=== PATIENT | female | born 1945 | race Caucasian/White ===

== ENCOUNTER 2022-02-15 08:28 | Day surgery (SDC) | payer MEDICARE, OTHER ==
--- NOTE | 2022-02-15 07:45 | HP ---
DATE OF SURGERY: 02/15/2022 HISTORY OF PRESENT ILLNESS: The patient is a 76-year-old with history of polyps in the past. No bloody stools. No change in bowel movements. No pain. Family history negative for colon cancer. Family history of polyps. She is in need of follow up screening colonoscopy. PAST MEDICAL HISTORY: Hypothyroidism, some kidney problems and some arthritis. PAST SURGICAL HISTORY: Includes knee replacement, back surgery and cataract in the past. She had colonoscopy in the past. MEDICATIONS: Synthroid, multivitamin, aspirin. Vicodin PRN for arthritis. ALLERGIES: NKDA. FAMILY HISTORY: Cancer but negative for colon cancer. SOCIAL HISTORY: Denies smoking. REVIEW OF SYSTEMS: Fourteen systems reviewed. No chest pain or palpitations. Other systems negative or noncontributory as above and per preadmission questionnaire. PHYSICAL EXAMINATION: GENERAL: No acute distress. HEENT: Sclerae nonicteric. NECK: No JVD. CHEST: Equal excursion, nonlabored breathing. CVS: Regular rate and rhythm. ABDOMEN: Soft. No peritoneal signs. EXTREMITIES: No significant edema. NEURO: Alert, oriented, moving extremities symmetrically. RECTAL: Deferred timed to endoscopy exam. PSYCH: Appropriate mood and affect. IMPRESSION: History of polyps, need for follow up screening colonoscopy. I feel the patient is a candidate. She was shown the risk sheet, explained the procedure in detail including but not limited to bleeding or infection, risk of bowel injury or perforation possibly requiring further procedure, risk of missed or nondiagnosis or incomplete exam, possibly requiring barium enema, other studies or procedures, general risk of anesthesia or sedation, risk of bowel prep but not limited to, consent obtained. Will proceed with outpatient follow up screening colonoscopy under MAC anesthesia.
[2022-02-15] MEDS: Lactated Ringers 1,000 ML IV SCH (08:40)
[2022-02-15] MEDS ORDERED: Xylocaine-Mpf 2% 5 Ml Vial ONE (10:24)
[2022-02-15] MEDS ORDERED: DIPRIVAN 200 MG/20 ML IV ONE (10:24)
[2022-02-15 11:56] VITALS: BP 159/78; PULSE 62; O2SAT 97
--- NOTE | 2022-02-15 14:01 | OP ---
SURGERY DATE/TIME: 02/15/2022 1032 PREOPERATIVE DIAGNOSIS: History of polyps, need follow up screening colonoscopy. POSTOPERATIVE DIAGNOSES: 1) ASA Class II. 2) Fair but slightly limited bowel prep. 3) Diverticulosis. 4) Small early polyps versus hyperplastic lesions. 5) Withdrawal time approximately nine minutes. PROCEDURES: 1) Colonoscopy to cecum with hot biopsy polypectomy. 2) Small early polyp versus hyperplastic lesion transverse colon x1, rectum x2. SURGEON: Dr. Dre Valadez. ANESTHESIA: MAC. ESTIMATED BLOOD LOSS: Minimal. INDICATIONS: As noted above. Risks and benefits explained in detail but not limited to and consent obtained. DESCRIPTION OF PROCEDURE AND FINDINGS: The patient is taken to the endoscopy room. MAC anesthesia induced. After official time out and no disagreement with planned procedure, digital rectal exam did not reveal any rectal masses. Video colonoscope inserted and passed up through the tortuous sigmoid, descending, transverse and ascending colon. With the external pressure the scope was able to be passed around to the cecum. Appendiceal orifice and ileocecal valve well visualized in right lower quadrant on palpation. Prep overall is fair but a little bit on the limited side with liquidy semisolid stool just slightly limiting the exam for very small lesions. The scope is slowly and carefully withdrew. ASA Class II. The scope is slowly and carefully withdrawn over the next nine minutes. Small early polyp versus hyperplastic lesion in the transverse colon removed with hot biopsy polypectomy. Good hemostasis noted. She had a few small diverticula in the left colon. Scope pulled back to the rectum. A few small early polyps versus hyperplastic lesion removed with hot biopsy forceps with brief bursts of cautery. Good hemostasis noted. The patient tolerated the procedure well. There was no family out in the waiting area to discuss the findings with.
== END 2022-02-15 12:00 | disposition home or self-care (01) ==
LOC: SDC 08:28
PROVIDERS: ATTEND Surgery
DX: Z09 Encounter for follow-up examination after completed treatment for conditions other than malignant neoplasm (principal); Z86.010 Personal history of colon polyps; K57.30 Diverticulosis of large intestine without perforation or abscess without bleeding; K63.5 Polyp of colon; K62.1 Rectal polyp; Z80.8 Family history of malignant neoplasm of other organs or systems
CPT/HCPCS: 99100; J2704

== ENCOUNTER 2023-01-24 09:29 | Day surgery (SDC) | payer MEDICARE, OTHER ==
--- NOTE | 2023-01-24 08:46 | HP ---
DATE OF SURGERY: 01/24/2023 HISTORY OF PRESENT ILLNESS: The patient is a 77-year-old female with problems of food getting stuck upper esophagus worse recently and sometimes has to make herself throw up. Last endoscopy years ago. Family history negative for esophageal cancer or esophageal problems. PAST MEDICAL HISTORY: Hypothyroidism. Arthritis. Pneumonia in the past. PAST SURGICAL HISTORY: Knee arthroscopy. Back surgery. Tubal ligation. EGD. Colonoscopy. MEDICATIONS: Hydrocodone/acetaminophen, multivitamin, Synthroid, aspirin. ALLERGIES: NKDA. FAMILY HISTORY: Breast cancer. Diabetes. Heart disease. Pacemaker. Bone cancer. SOCIAL HISTORY: No smoking. No alcohol abuse. REVIEW OF SYSTEMS: Fourteen systems reviewed. No chest pain or palpitations. Other systems negative or noncontributory as above and per preadmission questionnaire. PHYSICAL EXAMINATION: Height 5'7". BMI 27.41. GENERAL: No acute distress. HEENT: Sclerae nonicteric. EOMI. Oral mucous membranes moist. NECK: No JVD. CHEST: Equal excursion, nonlabored breathing. CVS: Regular rate and rhythm. ABDOMEN: Soft. No peritoneal signs. EXTREMITIES: No significant edema. NEURO: Alert, oriented, moving extremities symmetrically. PSYCH: Appropriate mood and affect. SKIN: Dry. IMPRESSION: Dysphagia. I recommend EGD possible biopsy, possible dilatation. Risk of bleeding or infection, risk of bowel injury or perforation possibly requiring further procedure or transfer for stent placement, possibly no improvement in swallowing possibly requiring other procedures, dilation or referral. Risk of possible no narrowing to dilate or possible neurological or functional where dilatation would not benefit. If dilatation performed and improves swallowing might need repeated again down the road. She agrees to the planned procedure. Continue medication for arthritis and hypothyroidism. Will proceed with EGD possible biopsy possible dilatation as an outpatient.
[2023-01-24] MEDS ORDERED: Lactated Ringers 1,000 ML IV ONE (09:58)
[2023-01-24] MEDS ORDERED: DIPRIVAN 200 MG/20 ML IV ONE (12:05)
[2023-01-24] MEDS ORDERED: Zofran 4 MG/2 ML VIAL ONE ×2 (12:38→13:21)
[2023-01-24 13:27] VITALS: BP 133/64; PULSE 78; O2SAT 96
--- NOTE | 2023-01-24 13:41 | OP ---
SURGERY DATE/TIME: 01/24/2023 1208 PREOPERATIVE DIAGNOSIS: Dysphagia. POSTOPERATIVE DIAGNOSES: 1) Mild erosive gastritis. 2) Question of small hiatal hernia. 3) Barnard pink mucosa extending up distal esophagus. 4) Mid esophagus narrowing with some mild inflammation. 5) Proximal esophageal narrowing. PROCEDURES: 1) EGD with cold biopsy of antrum. 2) Cold biopsy of some salmon pink mucosa distal esophagus as well as that of mid esophagus inflammation and narrowing. 3) Esophageal balloon dilatation of esophageal narrowing size 20 balloon. 4) Proximal esophageal balloon dilatation (size 20 balloon) both in the mid esophagus and proximal esophagus two separate areas. SURGEON: Dr. Dre Valadez. ANESTHESIA: MAC. ESTIMATED BLOOD LOSS: Minimal. INDICATIONS: As noted above. Risks and benefits explained in detail and not limited to and consent was obtained. DESCRIPTION OF PROCEDURE AND FINDINGS: The patient is taken to the endoscopy room. MAC anesthesia introduced. After official time out and no disagreement with planned procedure, bite block positioned. Video gastroscope easily advanced down the oropharynx to the proximal esophagus. She had some narrowing there. There was no mass there. It was felt as she was having symptoms there warranted dilatation to the area. The scope passed down through mid-part of the esophagus about 20 cm where there was a little bit of a narrowing that would benefit from dilatation. Distal to that there is some salmon pink mucosa distal part of the esophagus. The scope passed through to the patent pylorus to the third portion of the duodenum. Third, second, first portion of the duodenum grossly unremarkable. Scope pulled back in the stomach. She had some mild erosive gastritis. Cold biopsy taken to evaluate for Helicobacter pylori. On retroflex, she might have had a slight hiatal weakness it is difficult to tell endoscopically. There are no signs of any ulcers or masses. The scope pulled back. What seemed to be the distal esophagus was at about 33 - 34 cm. There was some salmon pink mucosa extending up over the mid esophagus. Multiple cold biopsies taken as there was no visible mass. Cold biopsies were taken in the inflammation just above the mid esophagus as well. No signs of any obvious masses. At this point good hemostasis noted. Scope passed down back in the stomach. Balloon catheter carefully inserted, pulled back up in the esophageal narrowing and gradually inflated. First stage for 20 or 30 seconds size 18 to 19 and then size 19 to 20 second stage 30 seconds, final stage size 20 balloon dilator for 1 minutes. Balloon was then decompressed a little bit and pulled up into the proximal esophageal narrowing area where repeated the first stage for 30 seconds, second stage size 19 for 30 seconds and final stage for 1 minutes to 2 minutes size 20 balloon dilator. The balloon was decompressed and withdrawn. The scope much more easily passed through this area down the stomach and carefully pulled back. There was mild mucosa disruption, minimal ooze. There did not appear to be any evidence of full thickness issue or injury on either dilatation site. The scope is withdrawn. Findings discussed with the family out in the waiting area.
== END 2023-01-24 13:33 | disposition home or self-care (01) ==
LOC: SDC 09:29
PROVIDERS: ATTEND Surgery
DX: K29.70 Gastritis, unspecified, without bleeding (principal); R13.10 Dysphagia, unspecified; K44.9 Diaphragmatic hernia without obstruction or gangrene; K22.2 Esophageal obstruction
CPT/HCPCS: 99100; C1726; J2405; J2704

== ENCOUNTER 2024-01-05 14:30 | Emergency (ER) | payer MEDICARE, OTHER ==
[2024-01-05 14:54] VITALS: TEMP 98.4
--- NOTE | 2024-01-05 15:36 | XRAY ---
Indication: Bradycardia. Comparison: None Portable chest inflated and clear. Heart not enlarged. Query small hiatal hernia. Bony thorax intact with osteopenia and mild degenerative changes. Impression: Nonacute chest. Query small hiatal hernia.
[2024-01-05 15:43] LABS: BASOPHIL % 0.5 % (0.1-1.2); Basophil (Absolute #) 0.04 x10^3/uL (0.01-0.08); Eosinophil (Absolute #) 0.15 x10^3/uL (0.04-0.36); Hematocrit 35.7 % (34.1-44.9); Hemoglobin 12.1 g/dL (11.2-15.7); IMMATURE GRAN # 0.07 x10^3u/L (0.001-0.031); IMMATURE GRAN % 0.9 % (0.001-0.429); Lymphocyte (Absolute #) 1.33 x10^3/uL (1.18-3.74); Lymphocytes % 17.9 % (19.3-51.7); Mean Cell Volume 87.1 fL (79.4-94.8); Mean Corpuscular Hemoglobin 29.5 pg (25.6-32.2); Mean Corpuscular Hgb Concent. 33.9 g/dL (32.2-35.5); Monocyte (Absolute #) 0.66 x10^3/uL (0.24-0.86); Monocytes % 8.9 % (4.7-12.5); Neutrophil % 69.8 % (34.0-71.1); Platelet Count 213 x10^3/uL (182-369); Red Cell Distribution Width 13.8 % (11.7-14.4); White Blood Count 7.5 x10^3/uL (3.98-10.04)
--- NOTE | 2024-01-05 15:54 | ERPHSYRPT ---
- History of Present Illness Time Seen by Provider: 01/05/24 14:53 Source: patient Exam Limitations: no limitations Patient Subjective Stated Complaint: pt was in physical therapy and they told her that her pulse was 37 Triage Nursing Assessment: Pt brought self to therapy and then was brought to the ER in a wheelchair, hypertensive, denies pain, pulse rate 68-72, pt was a little bit tired today but thought it was due to working outside, skin n/w/d, doesn't appear to be in any distress Physician History: 78-year-old female with history of hypothyroidism, GERD, arthritis who is getting therapy for knee replacement is sent in here after it was found patient was bradycardic. Patient was asymptomatic. She denies any chest pain palpitations or shortness of breath during the whole time she was bradycardic. Per therapy staff patient heart rate was in 30s. Patient heart rate is in 60s on presentation in the ER. Blood pressure in 160s. She is currently asymptomatic. Allergies/Adverse Reactions: No Known Drug Allergies Allergy (Verified 01/05/24 14:54) Home Medications: Hydrocodone/Acetaminophen [Hydrocodone-Acetamin 5-325 mg] 1 tab PO Q6H PRN P RN 02/11/22 [History] Levothyroxine Sodium 150 Mcg [Synthroid 150 Mcg] 150 mcg PO DAILY 02/11/22 [History] Multivitamin [Multi-Vitamin Daily] 1 tab PO DAILY 02/11/22 [History] Omeprazole 40 mg PO DAILY 01/05/24 [History] Hx Influenza Vaccination/Date Given: Yes Hx Pneumococcal Vaccination/Date Given: Yes Travel Risk - International Travel Have you traveled outside of the country in past 3 weeks: No - Emerging Infectious Disease Are you exhibiting symptoms associated with any current EIDs: No - Review of Systems Constitutional: No Symptoms Ears, Nose, & Throat: No Symptoms Respiratory: No Symptoms Cardiac: No Symptoms Abdominal/Gastrointestinal: No Symptoms Genitourinary Symptoms: No Symptoms Musculoskeletal: No Symptoms Skin: No Symptoms Neurological: No Symptoms Endocrine: No Symptoms Hematologic/Lymphatic: No Symptoms - Past Medical History Pertinent Past Medical History: Yes Neurological History: No Pertinent History ENT History: No Pertinent History Cardiac History: No Pertinent History Respiratory History: No Pertinent History Endocrine Medical History: Hypothyroidism, Other Musculoskeletal History: Osteoarthritis GI Medical History: No Pertinent History History: No Pertinent History Psycho-Social History: No Pertinent History Female Reproductive Disorders: No Pertinent History Other Medical History: REPORTS OA IN KNEES AND BACK. HX OF RIGHT TKR 2020. GERD, ESOPHAGEAL STRICTURE - HAD STRETCHING. - Past Surgical History Past Surgical History: Yes Neuro Surgical History: No Pertinent History Cardiac: No Pertinent History Respiratory: No Pertinent History Gastrointestinal: No Pertinent History Genitourinary: No Pertinent History Musculoskeletal: Orthopedic Surgery Female Surgical History: No Pertinent History Other Surgical History: back surgery, knee right replacement - Social History Smoking Status: Never smoker Exposure to second hand smoke: No Drug Use: none - Social Determinants of Health Will the patient participate in the screening: Yes Do you worry about a steady place to live?: No Do you have any problems with any of the following?: No known problems In the past 12 months,have you had to go without utilities?: No Transportation Issues: No Has anyone in your support network made you feel unsafe?: No Have you or anyone in your house had to go without enough: No - Nursing Vital Signs Nursing Vital Signs: Initial Vital Signs Temperature 98.4 F 01/05/24 14:44 Pulse Rate 78 01/05/24 14:44 Respiratory Rate 18 01/05/24 14:44 Blood Pressure 167/69 01/05/24 14:44 O2 Sat by Pulse Oximetry 97 01/05/24 14:44 Pain Scale Pain Intensity 0 - Physical Exam General Appearance: no apparent distress, alert Eye Exam: PERRL/EOMI Ears, Nose, Throat Exam: normal ENT inspection, TMs normal, pharynx normal, moist mucous membranes Neck Exam: normal inspection, non-tender, supple, full range of motion Respiratory Exam: normal breath sounds, lungs clear Cardiovascular Exam: regular rate/rhythm, normal heart sounds Gastrointestinal/Abdomen Exam: soft, No tenderness Back Exam: normal inspection Extremity Exam: normal inspection, normal range of motion Neurologic Exam: alert, oriented x 3, cooperative Skin Exam: normal color SpO2 Interpretation: normal SpO2: 97 O2 Delivery: Room Air - Course EKG Interpreted by Me: RATE (69), Sinus Rhythm, NORMAL AXIS, NORMAL INTERVALS, NORMAL QRS Ordered Tests: Active Orders 24 hr Category Date Time Status Sales Superintendent STAT Care 01/05/24 15:04 Active EKG-ER Only STAT Care 01/05/24 15:04 Active IV Insertion STAT Care 01/05/24 15:04 Active CHEST 1 VIEW (PORTABLE) Stat Exams 01/05/24 15:04 Completed CBC W DIFF Stat Lab 01/05/24 15:15 Completed CK-Creatinine Phosphokinase Stat Lab 01/05/24 15:15 Completed CMP Stat Lab 01/05/24 15:15 Completed NT PRO BNPII Stat Lab 01/05/24 15:15 Completed TROPONIN Q4H Lab 01/05/24 15:15 Completed TROPONIN Q4H Lab 01/05/24 19:15 Ordered TROPONIN Q4H Lab 01/05/24 23:15 Ordered TSH [TSH, 3RD Generation] Stat Lab 01/05/24 15:21 Completed Lab/Rad Data: Laboratory Result Diagrams 01/05/24 15:15 01/05/24 15:15 Laboratory Results 01/05/24 01/05/24 01/05/24 Range/Units 15:21 15:15 15:15 WBC (3.98-10.04) x10^3/uL RBC (3.93-5.22) x10^6/uL Hgb (11.2-15.7) g/dL Hct (34.1-44.9) % MCV (79.4-94.8) fL MCH (25.6-32.2) pg MCHC (32.2-35.5) g/dL RDW (11.7-14.4) % Plt Count (182-369) x10^3/uL MPV (9.4-12.3) fL Gran % (34.0-71.1) % Immature Gran % (Auto) (0.001-0.429) % Nucleat RBC Rel Count (0.00-0.2) % Eos # (Auto) (0.04-0.36) x10^3/uL Immature Gran # (Auto) (0.001-0.031) x10^3u/L Absolute Lymphs (auto) (1.18-3.74) x10^3/uL Absolute Monos (auto) (0.24-0.86) x10^3/uL Absolute Nucleated RBC (0.00-0.012) x10^3u/L Lymphocytes % (19.3-51.7) % Monocytes % (4.7-12.5) % Eosinophils % (0.7-5.8) % Basophils % (0.1-1.2) % Absolute Granulocytes (1.56-6.13) x10^3/uL Basophils # (0.01-0.08) x10^3/uL Sodium 140 (135-145) mmol/L Potassium 4.0 (3.5-5.1) mmol/L Chloride 110 H (98-107) mmol/L Carbon Dioxide 21 L (22-30) mmol/L Anion Gap 13.4 (5-15) MEQ/L BUN 25 H (7-17) mg/dL Creatinine 1.25 H (0.52-1.04) mg/dL Estimated GFR 43.6 ML/MIN Glucose 92 (74-106) mg/dL Calcium 8.9 (8.4-10.2) mg/dL Total Bilirubin 0.40 (0.2-1.3) mg/dL AST 22 (14-36) U/L ALT 16 (0-35) U/L Alkaline Phosphatase 90 (38-126) U/L Creatine Kinase 52 (30-135) U/L Troponin I < 0.012 (0.000-0.033) ng/mL NT-Pro-B Natriuret Pep 712 (<300) pg/mL Serum Total Protein 7.9 (6.3-8.2) g/dL Albumin 4.1 (3.5-5.0) g/dL TSH 3rd Generation 0.368 L (0.470-4.680) mIU/L 01/05/24 Range/Units 15:15 WBC 7.5 (3.98-10.04) x10^3/uL RBC 4.10 (3.93-5.22) x10^6/uL Hgb 12.1 (11.2-15.7) g/dL Hct 35.7 (34.1-44.9) % MCV 87.1 (79.4-94.8) fL MCH 29.5 (25.6-32.2) pg MCHC 33.9 (32.2-35.5) g/dL RDW 13.8 (11.7-14.4) % Plt Count 213 (182-369) x10^3/uL MPV 10.0 (9.4-12.3) fL Gran % 69.8 (34.0-71.1) % Immature Gran % (Auto) 0.9 H (0.001-0.429) % Nucleat RBC Rel Count 0.0 (0.00-0.2) % Eos # (Auto) 0.15 (0.04-0.36) x10^3/uL Immature Gran # (Auto) 0.07 H (0.001-0.031) x10^3u/L Absolute Lymphs (auto) 1.33 (1.18-3.74) x10^3/uL Absolute Monos (auto) 0.66 (0.24-0.86) x10^3/uL Absolute Nucleated RBC 0.00 (0.00-0.012) x10^3u/L Lymphocytes % 17.9 L (19.3-51.7) % Monocytes % 8.9 (4.7-12.5) % Eosinophils % 2.0 (0.7-5.8) % Basophils % 0.5 (0.1-1.2) % Absolute Granulocytes 5.20 (1.56-6.13) x10^3/uL Basophils # 0.04 (0.01-0.08) x10^3/uL Sodium (135-145) mmol/L Potassium (3.5-5.1) mmol/L Chloride (98-107) mmol/L Carbon Dioxide (22-30) mmol/L Anion Gap (5-15) MEQ/L BUN (7-17) mg/dL Creatinine (0.52-1.04) mg/dL Estimated GFR ML/MIN Glucose (74-106) mg/dL Calcium (8.4-10.2) mg/dL Total Bilirubin (0.2-1.3) mg/dL AST (14-36) U/L ALT (0-35) U/L Alkaline Phosphatase (38-126) U/L Creatine Kinase (30-135) U/L Troponin I (0.000-0.033) ng/mL NT-Pro-B Natriuret Pep (<300) pg/mL Serum Total Protein (6.3-8.2) g/dL Albumin (3.5-5.0) g/dL TSH 3rd Generation (0.470-4.680) mIU/L - Progress Progress: improved, re-examined Progress Note: 01/05/24 17:18 78-year-old is evaluated in the ER for bradycardia found earlier at therapy. Patient was asymptomatic there and throughout stay in the ER. Throughout stay in the ER her heart rate was in 60s. I did not notice any dip in the heart rate while in here. Has normal sinus rhythm with no acute ST elevation on the EKG with heart rate 69. Has normal white count, stable CKD with a creatinine of 1.25 and chemistries fairly unremarkable otherwise. Patient has a TSH on the lower side. I do not see any reason why she was bradycardic. Patient is asymptomatic. I would place Bardy to monitor for any arrhythmias if she has. She has no palpitations here or while at therapy. Do not think patient needs any other workup and since she is asymptomatic, can be discharged with outpatient follow-up. Discussed signs symptoms of worsening needing return to ER which she seems understanding. Stable for discharge. Counseled pt/family regarding: lab results, diagnosis, need for follow-up, rad results Medical Desision Making - Independent Historian Additional History obtained from: Child - Diagnostic Testing Diagnostic test were ordered, analyzed, and reviewed by me: Yes Radiological Interpretation: Reviewed by me - Departure Departure Disposition: Home Clinical Impression: Bradycardia Condition: Stable Critical Care Time: No Referrals: SOPHIA DAILEY NP [Primary Care Provider] - Follow up with PCP 1 day CODI ARMIJO [CONSULTING PHYSICIAN] - Follow up/PCP as directed (call for appointment) Instructions: Bradycardia (DC), Sick Sinus Syndrome (DC) Additional Instructions: Follow-up with your primary care and cardiology for reevaluation. Return to ER if having palpitation, chest tightness, difficulty breathing, chest pain etc.
[2024-01-05 16:10] LABS: ALBUMIN 4.1 g/dL (3.5-5.0); ANION GAP 13.4 MEQ/L (5-15); BILIRUBIN,TOTAL 0.4 mg/dL (0.2-1.3); Calcium 8.9 mg/dL (8.4-10.2); Creatinine 1 1.25 mg/dL (0.52-1.04); EST GLOMERULAR FILTRATION RATE 43.6 ML/MIN; Total Protein 7.9 g/dL (6.3-8.2)
[2024-01-05 16:38] VITALS: PULSE 61; RESP 19
[2024-01-05 17:03] VITALS: BP 159/85
[2024-01-05 17:39] VITALS: O2SAT 97
== END 2024-01-05 17:36 | disposition home or self-care (01) ==
LOC: ED 14:30
DX: R00.1 Bradycardia, unspecified (principal); Z79.899 Other long term (current) drug therapy
CPT/HCPCS: 36000; 36415; 71045; 80053; 82550; 83880; 84443; 84484; 85025; 93005; 93041; 93225; 99284